=== PATIENT | male | born 1985 | race Caucasian/White ===

== ENCOUNTER 2017-11-26 19:18 | Emergency (ER) | payer SELFPAY ==
[~2017-11-26] VITALS: Ht 172.7 cm; Wt 59.1 kg
[~2017-11-26 19:18] MED LIST: AMOXICILLIN875 MG PO; ANAPROX275 MG PO; CEPHALEXIN500 M1 PO; DILANTIN 100MG100 MG PO; FLEXERIL; NAPROSYN500 MG PO; NO HOME MEDICATIONS; NORCO 325 MG-51 TAB PO; NORCO 325 MG-7.1 TAB PO; PEN-VEE K250 MG PO; PENICILLIN250 MG PO; PERCOCET 325 MG1 TA2 PO; TRAMADOL50 MG PO; XANAX 1MG1 MG PO; XANAX0.5 MG PO; XANAX1 MG PO; XANAX2 MG PO; ZOFRAN ODT4 MG PO; ZOFRAN4 MG PO
[2017-11-26 19:20] VITALS: BP 173/94; PULSE 75
[2017-11-26] MEDS ORDERED: PEN-VEE K500 MG PO (20:05)
[2017-11-26] MEDS ORDERED: NORCO 325 MG-51 TAB PO (20:05)
== END 2017-11-26 20:16 | disposition home or self-care (01) ==
LOC: COL.ER 19:18
DX: K02.9 Dental caries, unspecified (principal); K04.7 Periapical abscess without sinus

== ENCOUNTER 2021-01-22 09:54 | Emergency (ER) | payer BC ==
[~2021-01-22] VITALS: Ht 167.6 cm; Wt 70.5 kg
[~2021-01-22 09:54] MED LIST changes: +PEN-VEE K500 MG PO
[2021-01-22 10:09] VITALS: BP 119/75; TEMP 98.8
[2021-01-22 11:18] LABS: BASO # 0.1 (0.0-0.2); BASO % 1.1 % (0.0-2.0); EOS # 0.4 (0.0-0.7); EOS % 3.4 % (0-4.0); GRAN # 6.9 (1.4-6.5); GRAN % 66.8 % (42.2-75.2); HEMOGLOBIN 15.8 g/dl (13.5-18.0); LYMPH # 2.3 (1.2-3.4); LYMPH % 22.1 % (20.0-51.0); MEAN CELL VOLUME 85 fl (80.0-100.0); MEAN CORPUSCULAR HEMOGLOBIN 31 pg (27.0-31.0); MEAN CORPUSCULAR HGB CONC 36 g/dl (33.0-37.0); MONO # 0.7 (0.1-0.6); MONO % 6.4 % (1.7-9.3); PLATELET COUNT 222 K/mm3 (130-400); RED BLOOD COUNT 5.15 M/mm3 (4.20-5.60); REDCELL DISTRIBUTION WIDTH-CV 11.5 % (11.5-14.5)
[2021-01-22 11:24] LABS: ALBUMIN 3.9 gm/dL (3.5-5.0); BILIRUBIN,TOTAL 1.2 mg/dL (0.0-1.0); CALCIUM 9.3 mg/dL (8.4-10.2); CREATININE, serum 0.79 (0.66-1.25); POTASSIUM 4.1 mmol/L (3.4-5.0); TOTAL PROTEIN 6.9 gm/dL (6.4-8.2)
[2021-01-22] MEDS ORDERED: ZOFRAN ODT8 MG PO (11:58)
[2021-01-22 12:00] VITALS: PULSE 79
[2021-01-22 12:18] LABS: AMYLASE 80 U/L (30-110); LIPASE 64 U/L (23-300)
== END 2021-01-22 12:17 | disposition home or self-care (01) ==
LOC: COL.ER 09:54
PROVIDERS: Nurse Practitioner Family
DX: R11.2 Nausea with vomiting, unspecified (principal); R51.9 Headache, unspecified; R53.81 Other malaise; R10.13 Epigastric pain; R10.11 Right upper quadrant pain; F17.210 Nicotine dependence, cigarettes, uncomplicated; Z20.822 Contact with and (suspected) exposure to COVID-19; Z86.19 Personal history of other infectious and parasitic diseases

== ENCOUNTER → 2021-01-26 | Outpatient (CLI) | payer BC ==
[~2021-01-26] MED LIST changes: +ZOFRAN ODT8 MG PO
== END ==
LOC: COL.RAD 09:21
DX: R10.13 Epigastric pain (principal); R94.5 Abnormal results of liver function studies

== ENCOUNTER 2021-10-28 11:38 | Emergency (ER) | payer BC ==
[~2021-10-28] VITALS: Ht 172.7 cm; Wt 59.5 kg
[2021-10-28 11:54] VITALS: TEMP 97.7
[2021-10-28] MEDS ORDERED: VALIUM 10MG10 MG/TAB PO (12:31)
[2021-10-28 13:08] VITALS: BP 131/79; PULSE 58
== END 2021-10-28 13:08 | disposition home or self-care (01) ==
LOC: COL.ER 11:38
DX: M43.6 Torticollis (principal)

== ENCOUNTER 2022-06-18 07:23 | Emergency (ER) | payer BC ==
[~2022-06-18] VITALS: Ht 177.8 cm; Wt 59.1 kg
[~2022-06-18 07:23] MED LIST changes: +VALIUM 10MG10 MG/TAB PO
[2022-06-18 07:26] VITALS: BP 136/94; PULSE 116; TEMP 97.9
== END 2022-06-18 08:40 | disposition left against medical advice (07) ==
LOC: COL.ER 07:23
DX: R41.82 Altered mental status, unspecified (principal); T50.901A Poisoning by unspecified drugs, medicaments and biological substances, accidental (unintentional), initial encounter; V89.2XXA Person injured in unspecified motor-vehicle accident, traffic, initial encounter; Y92.410 Unspecified street and highway as the place of occurrence of the external cause

== ENCOUNTER 2024-01-29 21:20 | Emergency (ER) | payer SELFPAY ==
[~2024-01-29] VITALS: Ht 175.3 cm; Wt 77.3 kg
[2024-01-29 21:21] VITALS: TEMP 98.6
[2024-01-29 22:01] LABS: BASO # 0.1 K/mm3 (0.0-0.2); BASO % 1.1 % (0.0-2.0); EOS # 0.2 K/mm3 (0.0-0.7); EOS % 1.9 % (0.0-4.0); GRAN # 8.8 K/mm3 (1.4-6.5); GRAN % 70.2 % (42.2-75.2); HEMATOCRIT 49.8 % (42.0-52.0); HEMOGLOBIN 17.5 g/dl (13.5-18.0); LYMPH # 2.5 K/mm3 (1.2-3.4); LYMPH % 20.1 % (20.0-51.0); MEAN CELL VOLUME 84 fl (80.0-100.0); MEAN CORPUSCULAR HEMOGLOBIN 30 pg (27-31); MEAN CORPUSCULAR HGB CONC 35 g/dl (33.0-37.0); MEAN PLATELET VOLUME 8.9 fl (7.4-10.4); MONO # 0.8 K/mm3 (0.1-0.6); MONO % 6.4 % (1.7-9.3); PLATELET COUNT 285 K/mm3 (130-400); REDCELL DISTRIBUTION WIDTH-CV 12.3 % (11.5-14.5)
[2024-01-29 22:14] LABS: ALANINE AMINOTRANSFERASE 17 U/L (0-55); ALBUMIN 4.3 g/dL (3.5-5.0); ALKALINE PHOSPHATASE 100 U/L (40-150); ANION GAP 13 mmol/L (7-16); AST,SGOT 22 U/L (5-34); BILIRUBIN,TOTAL 0.5 mg/dL (0.2-1.2); BLOOD UREA NITROGEN 10 mg/dL (9-21); CALCIUM 10.7 mg/dL (8.4-10.2); CHLORIDE 104 mEq/L (98-107); CREATININE, serum 1.12 mg/dL (0.72-1.25); GLUCOSE 84 mg/dL (70-99); POTASSIUM 3.9 mEq/L (3.5-4.5); SODIUM 141 mEq/L (136-145); TOTAL PROTEIN 8.2 g/dl (6.2-8.1)
[2024-01-29 22:15] LABS: ALCOHOL(ethanol),MEDICAL < 10 mg/dL (0-10); SALICYLATE < 5.0 mg/dL (15.0-30.0)
[2024-01-30 03:21] LABS: TRICYCLIC ANTIDEPRESS URINE NEGATIVE (NEGATIVE)
[2024-01-30 06:29] VITALS: BP 128/85; PULSE 74
== END 2024-01-30 06:40 | disposition home or self-care (01) ==
LOC: COL.ER 21:20
PROVIDERS: Nurse Practitioner
DX: T42.4X2A Poisoning by benzodiazepines, intentional self-harm, initial encounter (principal); T45.0X2A Poisoning by antiallergic and antiemetic drugs, intentional self-harm, initial encounter; T42.6X2A Poisoning by other antiepileptic and sedative-hypnotic drugs, intentional self-harm, initial encounter; F17.200 Nicotine dependence, unspecified, uncomplicated

== ENCOUNTER 2024-02-27 12:51 | Inpatient (IN) | payer SELFPAY ==
[~2024-02-27] VITALS: Ht 185.4 cm; Wt 64.6 kg
[2024-02-27] VITALS (213 sets, daily range): BP systolic 113–156; BP diastolic 58–110; PULSE 70–92; TEMP 97.3–97.8; O2SAT 89–100
[2024-02-27] MEDS ORDERED: LORazepam 2 MG/ML 1 ML VIAL IV ONE (13:15)
[2024-02-27] MEDS ORDERED: NS 1,000 ML IV ONE (13:15)
[2024-02-27 13:25] LABS: COLLECTION METHOD CLEAN CATCH
[2024-02-27 13:31] LABS: URINE APPEARANCE CLEAR (CLEAR/HAZY); URINE BLOOD 1+ (NEGATIVE); URINE COLOR YELLOW (YELLOW); URINE GLUCOSE 1+ (NEGATIVE); URINE KETONE NEGATIVE (NEGATIVE); URINE NITRATE NEGATIVE (NEGATIVE); URINE PROTEIN(semi-quant) NEGATIVE (NEGATIVE); URINE UROBILINOGEN 0.2 E.U/dL (0.2-1.0)
[2024-02-27 13:32] LABS: BASO # 0.2 K/mm3 (0.0-0.2); BASO % 1.2 % (0.0-2.0); EOS # 0.3 K/mm3 (0.0-0.7); EOS % 2.2 % (0.0-4.0); GRAN # 9.2 K/mm3 (1.4-6.5); GRAN % 72.1 % (42.2-75.2); LYMPH # 2.2 K/mm3 (1.2-3.4); LYMPH % 17.4 % (20.0-51.0); MEAN CELL VOLUME 86 fl (80.0-100.0); MEAN CORPUSCULAR HGB CONC 35 g/dl (33.0-37.0); MEAN PLATELET VOLUME 8.7 fl (7.4-10.4); MONO # 0.9 K/mm3 (0.1-0.6); MONO % 6.9 % (1.7-9.3); PLATELET COUNT 241 K/mm3 (130-400); RED BLOOD COUNT 6.12 M/mm3 (4.20-5.60); REDCELL DISTRIBUTION WIDTH-CV 12.4 % (11.5-14.5)
[2024-02-27 13:48] LABS: ALANINE AMINOTRANSFERASE 42 U/L (0-55); ALBUMIN 4.7 g/dL (3.5-5.0); ALKALINE PHOSPHATASE 103 U/L (40-150); ANION GAP 13 mmol/L (7-16); AST,SGOT 31 U/L (5-34); BILIRUBIN,TOTAL 1.4 mg/dL (0.2-1.2); BLOOD UREA NITROGEN 11 mg/dL (9-21); CALCIUM 9.9 mg/dL (8.4-10.2); CHLORIDE 101 mEq/L (98-107); CREATININE, serum 1.03 mg/dL (0.72-1.25); GLUCOSE 151 mg/dL (70-99); POTASSIUM 3.6 mEq/L (3.5-4.5); SODIUM 138 mEq/L (136-145); TOTAL PROTEIN 8.1 g/dl (6.2-8.1)
[2024-02-27 13:49] LABS: ALCOHOL(ethanol),MEDICAL < 10 mg/dL (0-10)
[2024-02-27 14:00] LABS: HEMATOCRIT 52.3 % (42.0-52.0); HEMOGLOBIN 18.1 g/dl (13.5-18.0); MEAN CORPUSCULAR HEMOGLOBIN 30 pg (27-31)
[2024-02-27 14:08] LABS: TRICYCLIC ANTIDEPRESS URINE POSITIVE (NEGATIVE)
[2024-02-27 14:14] LABS: TSH w REFLEX 3.391 uIU/mL (0.350-4.940)
[2024-02-27 14:44] LABS: SALICYLATE < 5.0 mg/dL (15.0-30.0)
[2024-02-27] MEDS ORDERED: VALIUM 10MG10 MG/TAB PO (16:53)
--- NOTE | 2024-02-27 17:13 | NUR ---
Patient arrived to the unit from ER. Patient Awake and alert but only oriented to self. Patient mumbling incoherently to himself. Will look at staff if spoken to but does not appear to comprehend fully what is said to him. Patient observed frequently attempting to sit up and swing legs over the side of the bed and reachs up to grab at obects which are unseen. Staff must frequently re-direct and patient currenlty requiring 1:1 staff presence in room. VS stable.
[2024-02-27] MEDS ORDERED: LORazepam 2 MG/ML 1 ML VIAL IV PRN (17:15)
[2024-02-27] MEDS ORDERED: NS & 40 mEq KCl 1,000 ML IV SCH (17:15)
[2024-02-27] MEDS ORDERED: Ondansetron 4 MG/2 ML VIAL IV PRN (17:15)
--- NOTE | 2024-02-27 19:15 | NUR ---
Received report from day shift nurse Kennedi Damon. Pt is lying in bed and is alert and confused. Pt mumbles to self and reaches for things in the air. Oriented pt to time and place. Pt is currently on NS & 40 mEQ of KCL at this time. Pt has a silva catheter in place at this time with no kinks in tubing. Pt's vitals are stable at this time. Will continue with pt care.
[2024-02-27] MEDS ORDERED: D5NS & 20 mEq KCl 1,000 ML IV SCH (20:15)
[2024-02-27] MEDS ORDERED: Glucagon 1 MG VIAL IM PRN (20:15)
[2024-02-27] MEDS ORDERED: Dextrose 50% Water 25 GM/50 ML SYRINGE IV PRN (20:15)
--- NOTE | 2024-02-27 22:00 | NUR ---
Talked to poison control about the positive TCA in the urine drug screen per Dr. Sparks from [facility] ICU. Poison control stated that benadryl can cause a false positived for TCA on the drug screen. They also wanted to make sure pt was not getting any sodium bicarb since that can cause the QTc to prolong. Told them what fluids the pt is on and they stated it's good that we are giving potassium with the fluids. Told poison control what the QTc was on the 3rd EKG which it was 460 which was lower than the first one. Told them the symptoms the pt was having which was picking, restlessness, and hallucinations and they state that it seems to go with benadryl overdose. They did not give any other suggestions at this time.
[2024-02-28] VITALS (298 sets, daily range): BP systolic 120–156; BP diastolic 84–112; PULSE 67–82; TEMP 97.3–97.8; O2SAT 37–100
[2024-02-28 04:56] LABS: BASO # 0.1 K/mm3 (0.0-0.2); BASO % 1.3 % (0.0-2.0); EOS # 0.3 K/mm3 (0.0-0.7); EOS % 3.4 % (0.0-4.0); GRAN # 4.8 K/mm3 (1.4-6.5); GRAN % 59.6 % (42.2-75.2); LYMPH # 2.2 K/mm3 (1.2-3.4); LYMPH % 27.1 % (20.0-51.0); MEAN CELL VOLUME 85 fl (80.0-100.0); MEAN CORPUSCULAR HEMOGLOBIN 29 pg (27-31); MEAN CORPUSCULAR HGB CONC 35 g/dl (33.0-37.0); MEAN PLATELET VOLUME 8.9 fl (7.4-10.4); MONO # 0.7 K/mm3 (0.1-0.6); MONO % 8.3 % (1.7-9.3); PLATELET COUNT 201 K/mm3 (130-400); RED BLOOD COUNT 5.13 M/mm3 (4.20-5.60); REDCELL DISTRIBUTION WIDTH-CV 12.2 % (11.5-14.5)
[2024-02-28 05:06] LABS: HEMATOCRIT 43.4 % (42.0-52.0); HEMOGLOBIN 15.1 g/dl (13.5-18.0)
[2024-02-28 05:13] LABS: CALCIUM 8.3 mg/dL (8.4-10.2); CREATININE, serum 0.82 mg/dL (0.72-1.25); MAGNESIUM 1.9 mg/dL (1.6-2.6)
--- NOTE | 2024-02-28 06:05 | NUR ---
Pt had an uneventful night. Pt's vitals were stable throughout the night. Pt was restless, picking, and hallucinating at the beginning of the shift. Pt was oriented to self and place but was confused with conversation. Pt fell asleep around 2330. Pt woke up around 0515 and was alert and oriented x3. Pt did not know why he was in the hospital. This nurse told him about the situation with him being found unconscious and had a possible overdose on some of his meds. He states he did not take to many meds and that his meds do not make him unconscious. This nurse asked if pt was trying to harm themselves or purposely took those meds to sleep. Pt states it was not to harm himself. He also states he has no suicidal thoughts and has never had those thoughts. Pt currently seems agitated with the fact that he has to work and can not leave at this time since he is on an involuntary hold. Talk to hospitalist at 0555 about the pt being awake and alert and oriented and states he has a headache with the pain being a 7 out of 10. Pt states he normally takes percocet or hydrocodone for headaches and that tylenol and ibuprofen makes him feel sick. Hospitalist did not order any pain meds at this time and said to continue the fluids at this time. This nurse asked pt if he would like an ice pack or a warm blanket to put on his head. The pt refused and states that those things never work. Will give report to day shift nurse.
--- NOTE | 2024-02-28 07:00 | NUR ---
Report received from EUGENIA Kolb; patient is attempting to leave AMA this morning, Dr. Carver notified and will be here in "half an hour" to sign involuntary hold paperwork. Patient is becoming increasingly agitated; insisting he's leaving after he "rips these needles out of my arm".
--- NOTE | 2024-02-28 08:00 | NUR ---
Patient extremely agitated and refusing assessment and other interventions; partial assessment done based on what this nurse could observe and what he allowed.
--- NOTE | 2024-02-28 08:30 | NUR ---
Patient info faxed to [facility]; this nurse also called [facility] to discuss psych screen. [facility] will call back after fax received and reviewed.
--- NOTE | 2024-02-28 10:30 | NUR ---
Patient attempted to leave hospital this morning, and keeps threatening to do so again. Patient states we are "holding him hostage" and that he needs to leave so he can "go to work"; security called to keep him from leaving AMA. This nurse called [facility] three times this morning to see about getting him screened; have been repeatedly told that the screener is doing another screen and that they'll call when they're done with that one. Supervisor Shuttle Fittingraffy Roberts has been in the patient's room with him speaking with him and keeping him calm.
--- NOTE | 2024-02-28 11:07 | NUR ---
SW presented to ICU to complete intake with patient, however SW was informed it would not be benefical at this time to approach patient due to being aggitated due to involuntary holde awaiting [place] Screen. Information discuseed with house nurse and SW will approach patient when able to to complete intake when appropriate.
--- NOTE | 2024-02-28 12:03 | NUR ---
Patient left AMA while involuntary hold in place; patient started wondering out of the unit, this nurse followed patient to the ED doors, and when this nurse saw patient outside he had already sprinted through the parking lot. Magdy, java security engineer, notified who called [employer].
--- NOTE | 2024-02-28 12:32 | NUR ---
Data: Patient agreed to speak with Hr Shared Services Consultant who offered visit during Hr Shared Services Consultant rounds. Patient has been highly aggitated and attempted to depart ICU as witnessed by this Hr Shared Services Consultant prior to visit agreement. Hr Shared Services Consultant and Patient spoke about his use of benedryl to sleep; his work; his dog; and his twins who live in [place]. Patient walked the hallways twice during Hr Shared Services Consultant visit. Patient received a phone call from his Mother during the Hr Shared Services Consultant visit. Later he called his Mother again. Assessment: Increasingly aggitated initially. Patient lowered his aggitation level by speaking in a more suitable tone of voice and sitting in a chair in his room. After speaking to his Mother the second time, Patient refused to sit back in his own room; however, was seated quietly in the recliner in the doorway to ICU1 when Hr Shared Services Consultant left to do other rounds. Plan of Care: Hr Shared Services Consultant offered supportive listening; discussion about common interests; play an audible book for Patient to listen. Hr Shared Services Consultant returned to check in with Patient; however, Patient had departed the hospital on foot without being properly discharged. While Hr Shared Services Consultant was in the ICU, the Patient returned, followed by two Police Officers. Chaplains will continue to be available for supportive listening while Patient is admitted to this hospital.
--- NOTE | 2024-02-28 13:50 | NUR ---
Patient screened by [facility] and safety planned home. Discharge information discussed with patient and patient left with Magdy, security software engineer, and took an Uber home. Patient stable upon discharge and was ambulatory.
== END 2024-02-28 13:42 | disposition home or self-care (01) | DRG 917 ==
LOC: COL.ER 12:51 → ICU 15:33
PROVIDERS: Family Medicine; ADMIT Internal Medicine
DX: T45.0X2A Poisoning by antiallergic and antiemetic drugs, intentional self-harm, initial encounter (principal); G92.8 Other toxic encephalopathy; T42.4X2A Poisoning by benzodiazepines, intentional self-harm, initial encounter; G40.909 Epilepsy, unspecified, not intractable, without status epilepticus; F13.10 Sedative, hypnotic or anxiolytic abuse, uncomplicated; E16.2 Hypoglycemia, unspecified; Z23 Encounter for immunization
CPT/HCPCS: A4314; J1650; J2060; J3480; J7030; J7070

== ENCOUNTER 2024-05-29 05:53 | Emergency (ER) | payer OTHER ==
[~2024-05-29] VITALS: Ht 172.7 cm; Wt 61.4 kg
[2024-05-29 05:54] VITALS: TEMP 98
[2024-05-29] MEDS ORDERED: NS 1,000 ML IV ONE (06:00)
[2024-05-29] MEDS ORDERED: fentaNYL 50 MCG/ML 2 ML VIAL IV ONE (06:00)
[2024-05-29] MEDS ORDERED: levETIRAcetam 1,500 MG in Syringe 1 EACH IV ONE (06:00)
[2024-05-29] MEDS ORDERED: VALIUM 10MG10 MG/TAB PO (06:29)
[2024-05-29 06:44] LABS: BASO # 0.1 K/mm3 (0.0-0.2); BASO % 1.1 % (0.0-2.0); EOS # 0.2 K/mm3 (0.0-0.7); EOS % 2.4 % (0.0-4.0); GRAN # 5.4 K/mm3 (1.4-6.5); GRAN % 64.2 % (42.2-75.2); HEMATOCRIT 41.7 % (42.0-52.0); HEMOGLOBIN 15.4 g/dl (13.5-18.0); LYMPH # 2.2 K/mm3 (1.2-3.4); LYMPH % 26.3 % (20.0-51.0); MEAN CELL VOLUME 84 fl (80.0-100.0); MEAN CORPUSCULAR HEMOGLOBIN 31 pg (27-31); MEAN CORPUSCULAR HGB CONC 37 g/dl (33.0-37.0); MEAN PLATELET VOLUME 8.8 fl (7.4-10.4); MONO # 0.5 K/mm3 (0.1-0.6); MONO % 5.8 % (1.7-9.3); PLATELET COUNT 261 K/mm3 (130-400); RED BLOOD COUNT 4.97 M/mm3 (4.20-5.60); REDCELL DISTRIBUTION WIDTH-CV 12.2 % (11.5-14.5)
[2024-05-29 06:56] LABS: BILIRUBIN,TOTAL 0.5 mg/dL (0.2-1.2); CALCIUM 9.1 mg/dL (8.4-10.2); CREATININE, serum 0.81 mg/dL (0.72-1.25); MAGNESIUM 2.1 mg/dL (1.6-2.6); POTASSIUM 3.6 mEq/L (3.5-4.5); TOTAL PROTEIN 6.7 g/dl (6.2-8.1)
[2024-05-29] MEDS ORDERED: Ketorolac 15 MG/ML VIAL IV ONE (07:30)
[2024-05-29] MEDS ORDERED: diphenhydrAMINE 50 MG/ML 1 ML VIAL IV ONE (07:30)
[2024-05-29] MEDS ORDERED: KEPPRA 500MG500 MG PO (07:36)
[2024-05-29 07:55] LABS: COLLECTION METHOD CATHETER
[2024-05-29 08:05] LABS: PH 6.5 (5.0-8.5); URINE APPEARANCE CLEAR (CLEAR/HAZY); URINE BLOOD NEGATIVE (NEGATIVE); URINE COLOR YELLOW (YELLOW); URINE GLUCOSE NEGATIVE (NEGATIVE); URINE KETONE NEGATIVE (NEGATIVE); URINE NITRATE NEGATIVE (NEGATIVE); URINE PROTEIN(semi-quant) NEGATIVE (NEGATIVE); URINE UROBILINOGEN 0.2 E.U/dL (0.2-1.0)
[2024-05-29 09:16] VITALS: BP 120/87; PULSE 60
== END 2024-05-29 09:22 | disposition home or self-care (01) ==
LOC: COL.ER 05:53
PROVIDERS: Emergency Medicine
DX: S01.01XA Laceration without foreign body of scalp, initial encounter (principal); R56.9 Unspecified convulsions; F17.200 Nicotine dependence, unspecified, uncomplicated; X58.XXXA Exposure to other specified factors, initial encounter
CPT/HCPCS: J1200; J1885; J1953; J2765; J3010; J7030